=== PATIENT | female | born 1960 | race Caucasian/White ===

== ENCOUNTER → 2020-02-20 12:08 | Outpatient (BNVA) | payer MEDICAID, SELFPAY | PROVIDERS: Family Provider Physician Assistant Medical; PCP Physician Assistant Medical; Visit Provider Nurse Practitioner Family | DX: L02.811 Cutaneous abscess of head [any part, except face] (principal) | CPT/HCPCS: 84450; 87070; 87077; 87186 ==

== ENCOUNTER → 2022-11-29 12:46 | Outpatient (BNVA) | payer MEDICAID, SELFPAY | PROVIDERS: Family Provider Physician Assistant Medical; PCP Physician Assistant Medical; Visit Provider Internal Medicine Cardiovascular Disease | DX: R07.9 Chest pain, unspecified (principal); R06.02 Shortness of breath; N18.9 Chronic kidney disease, unspecified; Z79.01 Long term (current) use of anticoagulants; R94.39 Abnormal result of other cardiovascular function study; I77.9 Disorder of arteries and arterioles, unspecified; I35.1 Nonrheumatic aortic (valve) insufficiency; I65.29 Occlusion and stenosis of unspecified carotid artery; J44.9 Chronic obstructive pulmonary disease, unspecified; Z86.79 Personal history of other diseases of the circulatory system; F17.200 Nicotine dependence, unspecified, uncomplicated; I10 Essential (primary) hypertension; Q87.40 Marfan syndrome, unspecified; R94.31 Abnormal electrocardiogram [ECG] [EKG] | CPT/HCPCS: 36415; 80048; 84443; 85025; 93005; 99205 ==

== ENCOUNTER 2022-12-12 13:43 | Outpatient (CLI) | payer MEDICAID, SELFPAY ==
--- NOTE | 2022-12-12 13:15 | USR_ITS ---
PROCEDURE INFORMATION: Exam: US Duplex Lower Extremity Arteries Exam date and time: 12/12/2022 2:24 PM Age: 62 years old Clinical indication: Pain; Leg, lower; Bilateral; Prior surgery; Surgery date: 6+ months; Surgery type: See above; Additional info: Pad/ leg pain TECHNIQUE: Imaging protocol: Real-time ultrasound scan of the arteries of the bilateral lower extremities with 2-D montiel scale, color Doppler flow and spectral waveform analysis. Images documented and saved. COMPARISON: CT angio chest w abd pel w con 08/08/2018 6:56 AM FINDINGS: Right common femoral artery: No occlusion or significant stenosis. Abnormal monophasic waveform. Right superficial femoral artery: No occlusion or significant stenosis. Abnormal monophasic waveform. Right popliteal artery: No occlusion or significant stenosis. Abnormal monophasic waveform. Right calf/foot arteries: No occlusion or significant stenosis in the visualized arteries. Abnormal monophasic waveforms. Dorsalis pedis artery is occluded Left common femoral artery: No occlusion or significant stenosis. Abnormal monophasic waveform. Left superficial femoral artery: No occlusion or significant stenosis. Abnormal monophasic waveform. Left popliteal artery: No occlusion or significant stenosis. Abnormal monophasic waveform. Left calf/foot arteries: No occlusion or significant stenosis in the visualized arteries. Abnormal monophasic waveforms. Dorsalis pedis artery is patent. Other findings: Fem-fem bypass graft is occluded, known or old per given clinical history. 4.8 x 3.1 x 5.6 cm oval-shaped predominant hypoechoic region around the fem-fem graft on the right side likely chronic hematoma appearance SIGIFREDO of 0.8 on the right and 0.3 on the left. US/CV arterial duplex [facility] [id number] IMPRESSION: 1. Diffuse abnormal monophasic arterial waveforms throughout bilaterally. 2. SIGIFREDO of 0.8 on the right and 0.3 on the left. Findings suggest severe runoff disease on the left and [id number] runoff disease on the right. 3. Occluded right dorsalis pedis artery. No significant stenosis or occlusion otherwise. 4. Known occluded fem-fem graft.
--- NOTE | 2022-12-12 14:00 | USCV_ITS ---
Barbara Gonzalez Age: 62 Gender: F : 1960 Exam Date: 12/12/2022 15:21 Ordering Phys: Edi King MD ([email or web address]) Technologist: CT Exam Location: [facility] Indication: cp,sob BP: 176 / 50 HR: 69 Rhythm: Sinus Technical Quality: Adequate MEASUREMENTS (Male / Female) Normal Values 2D ECHO LV Diastolic Diameter PLAX 3.6 cm 4.2 - 5.9 / 3.9 - 5.3 cm LV Systolic Diameter PLAX 2.7 cm IVS Diastolic Thickness 0.9 cm 0.6 - 1.0 / 0.6 - 0.9 cm IVS Systolic Thickness 1.3 cm LVPW Diastolic Thickness 1.3 cm 0.6 - 1.0 / 0.6 - 0.9 cm LVPW Systolic Thickness 1.9 cm LVOT Diameter 1.9 cm LV Ejection Fraction 2D Teich 51.5 % LV Ejection Fraction MOD 2C 67.0 % LV Ejection Fraction 2C AL 71.2 % LA Diameter 3.3 cm Aorta at Sinotubular Diameter 2.4 cm IVC Diameter 1.5 cm M-MODE Aortic Annulus Diameter 3.4 cm LA Ao Ratio MM 1.1 MV E Point Septal Separation 0.3 cm DOPPLER AV Peak Velocity 271.0 cm/s LVOT Peak Velocity 146.0 cm/s AV Area Cont Eq vti 1.7 cm squared AV Area Cont Eq pk 1.5 cm squared MV Peak Velocity 139.0 cm/s MV Area PHT 3.2 cm squared Mitral E to A Ratio 1.3 MV E' Velocity 55.0 cm/s Mitral E to MV E' Ratio 14.7 Mitral E to LV E' Lateral Ratio 14.5 Mitral E to LV E' Septal Ratio 14.9 TR Peak Velocity 163.2 cm/s TR Peak Gradient 10.7 mmHg TR Mean Velocity 108.9 cm/s TR Mean Gradient 5.3 mmHg TR Velocity Time Integral 30.6 cm TV Peak E Velocity 85.0 cm/s Right Atrial Pressure 3.0 mmHg Pulmonary Artery Systolic Pressu 13.7 mmHg PV Peak Velocity 134.0 cm/s FINDINGS Left Ventricle Normal left ventricular size and systolic function, EF 67 %. Mild left ventricular hypertrophy. No regional wall motion abnormalities. Grade III/IV diastolic dysfunction (restrictive filling pattern), severely elevated filling pressures. Right Ventricle The right ventricle is normal in size and function. Right Atrium The right atrium is normal in size. Left Atrium inter atrial septum bulging to the right Mitral Valve Thickened mitral valve. Aortic Valve Thickened aortic valve. Mild to moderateaortic valve regurgitation. Moderate aortic valve calcification. Mild aortic valve stenosis, mean gradient 13.3 mmHg, CARLOS 1.7 cm squared. Tricuspid Valve Structurally normal tricuspid valve without significant stenosis or regurgitation. Pulmonary artery systolic pressure is normal. Pulmonic Valve Trace pulmonary valve regurgitation. Pericardium Normal pericardium without effusion. Aorta Normal aortic annulus size. IVC Normal inferior vena cava. CONCLUSIONS Normal left ventricular size and systolic function, EF 67 %. Mild left ventricular hypertrophy. No regional wall motion abnormalities. Grade III/IV diastolic dysfunction (restrictive filling pattern), severely elevated filling pressures. Moderate aortic valve calcification. Mild aortic valve stenosis, mean gradient 13.3 mmHg, CARLOS 1.7 cm squared. Mild to moderateaortic valve regurgitation. Trace pulmonary valve regurgitation. Thickened mitral valve. Inter atrial septum bulging to the right. Normal aortic annulus size. Compared to the previous study from 08/08/2018, there is development of mild aortic valve stenosis. Dr Edi King MD [facility] (Electronically Signed) Final Date: 14 Dec 2022 09:17 S
--- NOTE | 2022-12-12 14:45 | USCV_ITS ---
Barbara Gonzalez Age: 62 Gender: F : 1960 Exam Date: 12/12/2022 13:54 Ordering Phys: Edi King MD ([email or web address]) Technologist: CT Exam Location: [facility] [place] Indication: Risk Factors: Previous Vascular Surgery: Right Brachial BP: / Left Brachial BP: / Right Left Velocity (cm/s) Spectral Plaque Velocity (cm/s) Spectral Plaque Syst/Diast Broadening Syst/Diast Broadening 59.00/ 13.10 Prox CCA 122.70/ 17.10 57.30/ 15.30 Mid CCA 108.30/ 18.20 51.30/ 15.30 Distal CCA 103.20/ 20.20 125.20/28.40 Prox ICA 107.30/ 17.20 161.60/21.80 Mid ICA 107.50/ 22.40 91.00/ 17.10 Distal ICA 135.60/ 29.80 153.90 ECA 286.90 2.74 ICA/CCA 1.11 Antegrade Vertebral Antegrade 60.30/ 10.40 cm/s 49.20/ 12.50 cm/s Tri Subclavian Bi 222.6 263.7 0 0 FINDINGS velocities have slightly progressed since 2016. Progressed calcified atheromatous plaque. CONCLUSIONS Right ICA stenosis 50-69% at the lower end of the range. Severe calcified atheromatous plaque right carotid bulb/ICA. Intimal thickening and calcfied plaque Right CCA. Left ICA stenosis <50%. Moderate calcified atheromatous plaque left carotid bulb/ICA. Intimal thickening and calcified plaque LEFT CCA Normal antegrade Doppler flow noted in the right vertebral artery. Normal antegrade Doppler flow noted in the left vertebral artery. Deshawn Webb MD (Electronically Signed) Final Date: 12 Dec 2022 17:30 S
== END 2022-12-12 13:44 | disposition home or self-care (01) ==
LOC: RAD 13:46
PROVIDERS: PCP Nurse Practitioner Family; Visit Provider Internal Medicine Cardiovascular Disease
DX: R06.09 Other forms of dyspnea (principal); I77.9 Disorder of arteries and arterioles, unspecified; I73.9 Peripheral vascular disease, unspecified; I35.0 Nonrheumatic aortic (valve) stenosis; I35.1 Nonrheumatic aortic (valve) insufficiency
CPT/HCPCS: 93306; 93880; 93925

== ENCOUNTER → 2022-12-26 12:45 | Outpatient (BNVA) | payer MEDICAID, SELFPAY | PROVIDERS: PCP Nurse Practitioner Family; Visit Provider Thoracic Surgery (Cardiothoracic Vascular Surgery) | DX: I73.9 Peripheral vascular disease, unspecified (principal); F17.200 Nicotine dependence, unspecified, uncomplicated | CPT/HCPCS: 99203 ==

== ENCOUNTER 2023-01-31 13:13 | Outpatient (CLI) | payer MEDICAID, SELFPAY ==
--- NOTE | 2023-01-31 13:30 | CTR_ITS ---
PROCEDURE INFORMATION: Exam: CTA Abdominal Aorta and Bilateral Lower Extremities (Run-off) With Contrast Exam date and time: 01/31/2023 2:07 PM Age: 62 years old Clinical indication: Condition or disease; Peripheral vascular disease; Prior surgery; Surgery date: 6+ months; Surgery type: Colon, lung, appy; Patient HX: HX of colon cancer; Additional info: Pvd TECHNIQUE: Imaging protocol: Computed tomographic angiography of the of the abdominal aorta, pelvis and bilateral lower extremities with contrast. 3D rendering (Not supervised by radiologist): MIP and 3D reconstructed images were created by the technologist. Radiation optimization: All CT scans at this facility use at least one of these dose optimization techniques: automated exposure control; mA and/or kV adjustment per patient size (includes targeted exams where dose is matched to clinical indication); or iterative reconstruction. Contrast material: OMNI 350; Contrast volume: 95 ml; Contrast route: INTRAVENOUS (IV); REPORTING DATA: Count of CT and Cardiac NM exams in prior 12 months: This patient has received 0 known CTs and 0 known cardiac nuclear medicine studies in the 12 months prior to the current study. COMPARISON: CT angio chest w abd pel w con 08/08/2018 6:56 AM RADIATION DOSE METRICS: Total DLP (mGy-cm): 649.05 FINDINGS: Aorta: Moderate abdominal aortic atherosclerotic calcification without aneurysm. Celiac trunk and mesenteric arteries: Occluded inferior mesenteric artery origin with distal reconstitution. Renal arteries: Single left renal artery. Small caliber accessory right renal artery. Moderate stenosis dominant right renal artery. Severe stenosis left renal artery. Right iliac arteries: Occluded right common iliac artery and stent. Occluded right external iliac artery and stent. Occluded right internal iliac artery. Right femoral/popliteal arteries: Reconstituted right common femoral artery. Severe stenosis right femoral artery origin. Right infrapopliteal arteries: 2 vessel patency at the right ankle. Distal lower leg occlusion of the right anterior tibial artery. The right posterior tibial artery supplies the forefoot. Left iliac arteries: Patent left common iliac artery stent. Patent left internal iliac artery with moderate stenosis. Interval occlusion left external iliac artery and stent. Left femoral/popliteal arteries: Reconstituted left common femoral artery. Less than 30% stenosis left popliteal artery. Left infrapopliteal arteries: Occlusion left anterior tibial artery in the lower 1/2 of the lower leg. The left posterior tibial artery supplies the forefoot. Other arteries: Occluded femoral-femoral bypass graft. Large fluid collection surrounding the femoral-femoral bypass graft, measuring approximately 13.7 x 5.6 x 3.7 cm. Right hernandez mortis artery, normal variant. Left hernandez mortis artery, normal variant. Lungs: Left lower lobe calcified pulmonary parenchymal granuloma. Mediastinal space: Distal thoracic esophageal wall thickening. Liver: No mass. The liver measures 17.9 cm in the midclavicular plane. Gallbladder and bile ducts: The gallbladder is partially contracted. No extrahepatic biliary ductal dilatation or calculus. Pancreas: Unremarkable. No mass. No ductal dilation. Spleen: The spleen demonstrates a few small granulomatous calcifications. Adrenal glands: Normal. No mass. Kidneys and ureters: Mild left renal cortical scarring. Stomach and bowel: Unremarkable. No obstruction. No mucosal thickening. Appendix: No evidence of appendicitis. Urinary bladder: Unremarkable. No mass. Reproductive: Unremarkable as visualized. Intraperitoneal space: Unremarkable. No free air. No significant fluid collection. Lymph nodes: No lymphadenopathy. Bones/joints: Two vessel runoff to the left ankle. Bony hypertrophy of the left calcaneus at the calcaneocuboid articulation. No destructive bony process identified. Bilateral mild lower lumbar facet primary osteoarthritis. Lumbar spine vertebral body marginal osteophytes are noted at multiple levels. L2-L3 degenerative disc disease. Mild leftward lumbar spinal curvature. Soft tissues: Unremarkable. CT/CT angio abd aorta runof [id number] IMPRESSION: 1. Occluded right common iliac artery and stent. 2. Occluded right external iliac artery and stent. 3. Occluded right internal iliac artery. 4. Occluded femoral-femoral bypass graft. 5. Large interval fluid collection surrounding the femoral-femoral bypass graft. 6. Patent left common iliac artery stent. 7. Patent left internal iliac artery with moderate stenosis. 8. Interval occlusion left external iliac artery and stent. 9. Reconstituted right common femoral artery. 10. Severe stenosis right femoral artery origin. 11. Distal lower leg occlusion of the right anterior tibial artery. 12. Occlusion left anterior tibial artery in the lower 1/2 of the lower leg. 13. Bilateral renal artery stenoses. Clinical correlation (systemic hypertension?) is recommended. 14. Occluded inferior mesenteric artery origin with distal reconstitution. 15. Mild left renal cortical scarring. 16. Mild hepatomegaly. 17. Distal thoracic esophagitis suggested. Clinical correlation with the patient's specific symptomatology is recommended.
[2023-01-31 14:06] LABS: Blood Urea Nitrogen 13 mg/dL (8-23); Glomerular Filtration Rate 84.5 mL/min (90-130)
[2023-01-31] MEDS: iohexol 350 mg/mL 500 mL Btl (per mL) IV (14:21)
== END 2023-01-31 13:14 | disposition home or self-care (01) ==
LOC: RAD 13:23
PROVIDERS: PCP Nurse Practitioner Family; Visit Provider Thoracic Surgery (Cardiothoracic Vascular Surgery)
DX: I74.5 Embolism and thrombosis of iliac artery (principal); I74.3 Embolism and thrombosis of arteries of the lower extremities; Z95.828 Presence of other vascular implants and grafts; I70.201 Unspecified atherosclerosis of native arteries of extremities, right leg; I70.8 Atherosclerosis of other arteries; R16.0 Hepatomegaly, not elsewhere classified
CPT/HCPCS: 75635; 82565; 84520; 99203; Q9967

== ENCOUNTER 2023-10-24 09:01 | Outpatient (CLI) | payer OTHER, MEDICAID, SELFPAY ==
[2023-10-24 09:18] VITALS: PULSE 73; RESP 18; O2SAT 97
[2023-10-24] MEDS: albuterol 2.5 mg/3 mL Neb INHALATION (09:18)
[2023-10-24 09:22] VITALS: PULSE 70
--- NOTE | 2023-10-24 10:30 | CT_ITS ---
WS: [id number] LDCT LUNG CANCER SCREENING TECHNIQUE: Noncontrast CT of the chest with coronal and sagittal reformatted images. CLINICAL INFORMATION: F17.210 - Nicotine dependence, cigarettes, uncomplicated COMPARISON: None. DLP: 42.91 mGy.cm DIvol: Mean CTDIvol: 0.70 (mGy) All CT scans at [facility] use at least one of these dose optimization techniques: automat ed exposure control; mA and/or kV adjustment per patient size (includes targeted exams where dose is matched to clinical indication); or iterative reconstruction. FINDINGS: Mild to moderate chronic emphysematous changes. Pleural parenchymal scarring in the RIGHT u pper lobe. A few inflammatory opacities in the LEFT lower lobe. No suspicious pulmonary parenchymal o pacities. Calcified granuloma LEFT lower lobe. Normal caliber thoracic aorta. Aortic calcification. Coronary ca lcification. Small calcified RIGHT thyroid nodule. No mediastinal or hilar lymphadenopathy. No axilla ry lymphadenopathy. Dense mesenteric vascular calcification in the upper abdomen. Chronic appearing mild compression of t he superior endplates at T4 and T5 IMPRESSION: CT/CT lung screening [id number] LUNG-RADS: 2-Benign Appearance or Behavior FOLLOW UP: 12 Month: Continue annual screening with LDCT
== END 2023-10-24 09:02 | disposition home or self-care (01) ==
LOC: RT 09:01
PROVIDERS: PCP Nurse Practitioner Family; Visit Provider Internal Medicine Pulmonary Disease
DX: F17.210 Nicotine dependence, cigarettes, uncomplicated (principal)
CPT/HCPCS: 71271; 94060; 94618; 94729; J7613